=== PATIENT | female | born 1970 | race Two or more races ===

== ENCOUNTER 2017-03-27 21:52 | Emergency (ER) | payer SELFPAY ==
[~2017-03-27] VITALS: Ht 162.6 cm; Wt 78.5 kg
[2017-03-27 22:00] VITALS: BP 146/87
[2017-03-27] MEDS ORDERED: Ketorolac 30mg Inj IV ONE (23:30)
[2017-03-28] VITALS: BP 139/88
[2017-03-28] MEDS ORDERED: PERCOCET 5-3251 EACH ORAL (00:49)
[2017-03-28 01:30] VITALS: BP 141/85
[2017-03-28 01:35] VITALS: BP 139/88
--- NOTE | 2017-03-28 03:08 | Emergency Room Report ---
History of Present Illness General Chief Complaint: Pain Source: Patient, Family Member Present Illness HPI 46-year-old female, history of left knee patellar surgery, many years ago, presenting with a fall and left knee pain. Patient was going down the escalator , tripped and fell in the left knee, did not hit her head no LOC. Patient has not complained of severe pain to left knee. Denies any other complaints Allergies: Coded Allergies: No Known Allergies (Unverified , 03/27/17) Patient History Past Medical History: see triage record Past Surgical History: none Pertinent Family History: none Now: No - hysterectomy Reviewed Nursing Documentation: PMH: Agreed, PSxH: Agreed Review of Systems All Other Systems: negative except mentioned in HPI Physical Exam Vital Signs Date Time Temp Pulse Resp B/P (MAP) Pulse Ox O2 Delivery O2 Flow Rate FiO2 03/27/17 21:44 98.6 97 18 146/87 97 Room Air Sp02 EP Interpretation: reviewed, normal General Appearance: normal inspection, well appearing, no apparent distress, alert, GCS 15, non-toxic Head: normocephalic, atraumatic Eyes: bilateral eye normal inspection, bilateral eye PERRL, bilateral eye EOMI ENT: normal ENT inspection, normal pharynx, normal voice, moist mucus membranes Neck: normal inspection, full range of motion, supple Respiratory: normal inspection, lungs clear, normal breath sounds, no respiratory distress, no retraction, no wheezing, speaking full sentences, chest symmetrical Cardiovascular #1: normal inspection, regular rate, rhythm, no edema, normal capillary refill Cardiovascular #2: 2+ radial (R), 2+ radial (L) Gastrointestinal: normal inspection, non tender, soft, non-distended, no guarding Musculoskeletal: other - Left knee and tender to palpation, anterior and medial aspects, well-healed surgical vertical scar, full range of passive range of motion, no tenderness along the proximal tibia, no other abnormalities noted to all other extremities Neurologic: normal inspection, alert, oriented x3, responsive, motor strength/ tone normal, sensory intact, normal gait, speech normal Psychiatric: normal inspection, judgement/insight normal, memory normal Skin: normal inspection, normal color, no rash, warm/dry, well hydrated, normal turgor Medical Decision Making Diagnostic Impression: Primary Impression: Contusion of knee, left ER Course 38-year-old female with left knee pain DDX: Contusion vs. fracture Plan: Pain control with motrin XR ER course: Patient reports improvement of pain with Toradol X-ray negative for acute fracture Patient placed on left knee immobilizer for comfort measures and discharged with crutches Disposition: Patient is to be discharged home Patient educated to rest, ice, and elevate extremity and to avoid vigorous activity. Strict precautions discussed with patient on when to return to the emergency room including increased redness or swelling joints, increased pain/swelling of extremity, fever or chills, which could indicate severe illness. Patient is to follow up with their primary care doctor within 5 days. Patient also instructed to follow up with an orthopedic doctor if continuing to have mild/moderate pain as he may need further outpatient imaging. Patient agrees with plan. Please note that this Emergency Department Report was dictated using [email or web address] professional technology software, occasionally this can lead to erroneous entry secondary to interpretation by the dictation equipment. Xray ordered: Left knee 3 view Indication: Pain EP Interpretation: Yes Interpretation: Severe osteoarthritis, No dislocation, no fractures Impression: No acute disease Electronically signed by Roque Dior MD Last Vital Signs Date Time Temp Pulse Resp B/P (MAP) Pulse Ox O2 Delivery O2 Flow Rate FiO2 03/28/17 01:35 98.6 88 16 139/88 98 Room Air Disposition: HOME, SELF-CARE Condition: Stable Scripts Oxycodone/Acetaminophen 5-325* (PERCOCET 5-325 MG TABLET*) 1 Each Tablet 1 TAB ORAL Q4H Y for For Pain, #15 TAB 0 Refills Prov: Roque Dior M.D. 03/28/17 Patient Instructions: Contusion, Knee Pain, Gril-mg-Iamn Additional Instructions: Please followup with an orthopedic doctor if not better in one week Roque Dior M.D. Mar 28, 2017 03:08
--- NOTE | 2017-03-28 10:18 | Diagnostic Imaging Report ---
Indication: PAIN Technique: 3 views of the left knee Comparison: None Findings:There is degenerative joint space narrowing of the medial joint compartment, with near complete obliteration of the joint space. There are medial and lateral osteophytes. There is also patellofemoral compartment degeneration. No suprapatellar effusion. No definite acute fractures. No dislocations. Impression:Evidence of severe osteoarthrosis No acute bony trauma This agrees with the preliminary interpretation provided by the emergency room physician
== END 2017-03-28 01:35 | disposition home or self-care (01) ==
LOC: EDBD 21:52 → EMR 22:06
DX: S80.02XA Contusion of left knee, initial encounter (principal); W10.0XXA Fall (on)(from) escalator, initial encounter; Y92.89 Other specified places as the place of occurrence of the external cause; M17.12 Unilateral primary osteoarthritis, left knee
CPT/HCPCS: 73562; 96374; 99284; J1885